=== PATIENT | male | born 1990 | race Hispanic/Latino ===

== ENCOUNTER 2019-05-30 07:04 | Day surgery (SDC) ==
[2019-05-30] MEDS ORDERED: LR 1,000 ML ONE ×2 (07:29→11:05)
[2019-05-30] MEDS ORDERED: KEFZOL 1 GM/D5W 1 GM/50 ML IVPB ONE (07:29)
[2019-05-30] MEDS ORDERED: DIPRIVAN 1% ONE (07:49)
[2019-05-30] MEDS ORDERED: QUELICIN (DOSE) ONE (08:03)
[2019-05-30] MEDS ORDERED: SENSORCAINE 0.25%/EPI 1:200,000 ONE (08:45)
[2019-05-30] MEDS ORDERED: SUFENTA ONE (09:58)
[2019-05-30] MEDS ORDERED: DECADRON ONE (10:13)
[2019-05-30] MEDS ORDERED: ZOFRAN ONE (10:13)
[2019-05-30] MEDS ORDERED: NORCO-7.5 ONE (11:43)
[2019-05-30] MEDS ORDERED: PHENERGAN IM PRN (12:03)
[2019-05-30] MEDS ORDERED: ZOFRAN IV PRN (12:03)
[2019-05-30] MEDS ORDERED: MORPHINE IV PRN (12:03)
[2019-05-30] MEDS: LR 1,000 ML IV SCH ×2 (12:22→23:53)
[2019-05-30 16:28] LABS: AGAP 12; BUN 7 mg/dL (8-22); CALCIUM 9.9 mg/dL (8.8-10.2); CHLORIDE 97 mmol/L (98-107); COSMO 273; CREATININE 0.7 mg/dL (0.7-1.2); ESTIMATED GFR > 60; GLUCOSE 120 mg/dL (70-104); SODIUM 137 mmol/L (136-145); TCO2 28 mmol/L (25-35)
[2019-05-30] MEDS: OSCAL 500 PO SCH ×2 (17:15→19:19)
[2019-05-30] MEDS: NORCO-7.5 PO PRN ×2 (19:19→23:53)
--- NOTE | 2019-05-30 19:48 | OPERATIVE NOTE ---
PROCEDURE DATE: 05/30/2019 PREOPERATIVE DIAGNOSIS: Papillary thyroid carcinoma. POSTOPERATIVE DIAGNOSIS: Papillary thyroid carcinoma. PROCEDURE PERFORMED: Total thyroidectomy. FUEL AGENT: Dr. Feliz. ANESTHESIA: General. INDICATIONS: A 28-year-old gentleman who had an incidentally noted anterior thyroid mass. Biopsy showed papillary changes concerning for carcinoma. OPERATIVE FINDINGS: There was a large nodule anterior just left of midline in the junction of the isthmus in the left thyroid lobe adherent to the trachea. SPECIMENS: 1. Left thyroid lobe and isthmus. 2. Right thyroid lobe and pyramidal lobe. OPERATIVE NOTE: Risks, benefits and alternatives were discussed with patient who consented to procedure. He was seen preoperatively, and surgical site was confirmed. He was taken to the operating room and placed in supine position. General anesthesia was induced without complication. Preincision antibiotics were administered. Neck and chest were prepped with Betadine and draped in the usual fashion after time-out. His head was also extended, and he was placed in reverse Trendelenburg position. A transverse incision was made in natural skin crease approximately 2 fingerbreadths below the sternal notch. We carried this down through the platysma raising preplatysmal flaps. We then incised the strap muscles along the midline. There was an anterior jugular vein that we cauterized with the LigaSure and subsequently ligated with a figure- of-eight Vicryl suture. After dividing the midline of the strap muscles, we dissected left laterally to the level of the carotid mobilizing the strap muscles off of the left thyroid lobe and the thyroid nodule. We identified the upper pole, encircled this and divided with LigaSure device and then continued our dissection inferiorly. The middle veins were divided with electrocautery protecting the recurrent laryngeal nerve and the parathyroid glands, which were both identified and protected. The inferior pole vessels were then dissected. We mobilized the thyroid out of its bed excising it from the trachea. It was quite adherent at the level of the nodule requiring dissection with a 15 blade scalpel to remove it in its entirety from the trachea. We did this meticulously, then divided the isthmus and passed it off. We turned our attention laterally on the right and dissected out to the carotid, identifying the upper pole, encircled this and divided. We also ensured to remove the entire pyramidal lobe, dissecting this out. It was quite prominent. The middle veins were divided as well as the inferior pole, protecting the recurrent laryngeal nerve. The ligament of Curry was very adherent to the recurrent laryngeal nerve, and we did this sharply, protecting it, also preserving the parathyroid glands. We passed it off and noted hemostasis. Mari was placed as there was some oozing in the proximity of the nerve that would not admit electrocautery, but hemostasis was noted. At this point, we performed a Valsalva maneuver, and there was no further bleeding. Reapproximated strap muscles with Vicryl suture. The platysma was reapproximated with Vicryl sutures, and the skin was closed with 4-0 Monocryl in subcuticular fashion. Dermabond was applied. Counts were correct. He was awoken, transferred to recovery. His voice was normal. There was no stridor. No hematoma. cc: Jhony Phillips MD
[2019-05-30] MEDS: PERIDEX MT SCH (22:14)
[2019-05-31] MEDS: NORCO-7.5 PO PRN ×2 (06:20→09:47)
[2019-05-31 09:22] LABS: AGAP 15; BUN 8 mg/dL (8-22); CALCIUM 9.5 mg/dL (8.8-10.2); CHLORIDE 97 mmol/L (98-107); COSMO 272; CREATININE 0.6 mg/dL (0.7-1.2); ESTIMATED GFR > 60; GLUCOSE 103 mg/dL (70-104); POTASSIUM 4.1 mmol/L (3.5-5.1); SODIUM 137 mmol/L (136-145); TCO2 25 mmol/L (25-35)
[2019-05-31] MEDS: PERIDEX MT SCH (09:39)
[2019-05-31] MEDS: OSCAL 500 PO SCH ×2 (09:46→14:47)
[2019-05-31 12:28] VITALS: BP 126/73
--- NOTE | 2019-05-31 15:47 | DISCHARGE SUMMARY ---
ADMISSION DATE: 05/30/2019 DISCHARGE DATE: 05/31/2019 ADMITTING DIAGNOSIS: Papillary thyroid carcinoma. DISCHARGE DIAGNOSIS: Papillary thyroid carcinoma. PROCEDURE PERFORMED: Total thyroidectomy. HISTORY OF PRESENT ILLNESS: This is a gentleman who incidentally noted a thyroid nodule. Biopsy confirmed papillary carcinoma. HOSPITAL COURSE: Patient was admitted on the day of his surgery for above procedure. For details, please see dictated operative note. Postoperatively, he was admitted to my service where his voice remained normal. He was able to tolerate a diet. Pain was controlled. He had no cervical swelling. We checked calcium levels both on the evening of his surgery and the following morning, and both remained stable. He is felt safe to discharge home. On discharge, his incision is flat. Voice is normal. He was tolerating food without difficulty. DISPOSITION: Home to self-care under his family. Follow up with me in 1 week. Discharge instructions were discussed via the language line and also provided written format. Continue home medications. Was given a prescription for Synthroid 125 mcg, calcium carbonate 500 mg t.i.d., Jamar Mace Zofran. cc: Jhony Phillips MD
== END 2019-05-31 15:55 | disposition home or self-care (01) ==
LOC: 4N 07:04 → PAT 07:04 → OPS 07:04
PROVIDERS: ATTEND Surgery
PROC: GE.THYR (2019-05-30 08:56)